=== PATIENT | female | born 1975 | race Two or more races ===

== ENCOUNTER → 2017-12-30 | Outpatient (CLI) | payer MEDICAID | END | disposition home or self-care (01) | LOC: RAD 10:52 → EDSTATUS 11:15 | PROVIDERS: ATTEND Family Medicine | DX: R51 Headache (principal) | CPT/HCPCS: 70450 ==

== ENCOUNTER 2018-11-27 12:21 | Outpatient (CLI) | payer MEDICAID | END 2018-11-27 23:59 | disposition home or self-care (01) | LOC: CFH 12:21 | PROVIDERS: ATTEND Family Medicine | DX: R92.8 Other abnormal and inconclusive findings on diagnostic imaging of breast (principal) | CPT/HCPCS: 76642; 77065 ==